=== PATIENT | male | born 1975 | race Caucasian/White ===

== ENCOUNTER 2017-03-04 17:50 | Emergency (ER) | payer OTHER ==
[~2017-03-04] VITALS: Ht 185.4 cm; Wt 96.8 kg
[~2017-03-04 17:50] MED LIST: CEPH-357 PO; NO HOME MEDS; NORCO10T PO
[2017-03-04 18:30] LABS: BASOPHILS % (AUTO) 0.4 % (0-1); EOSINOPHILS # (AUTO) 0.2 X10'3 (0-0.9); EOSINOPHILS % (AUTO) 2.9 % (0-6); HEMATOCRIT 44.6 % (42.0-52.0); HEMOGLOBIN 15.6 g/dl (14.0-17.9); LYMPHOCYTES # (AUTO) 1.7 X10'3 (1.1-4.8); LYMPHOCYTES % (AUTO) 26.6 % (21-51); MEAN CORPUSCULAR HEMOGLOBIN 28.3 PG (27.0-31.0); MEAN CORPUSCULAR HGB CONC 34.9 % (33.0-36.5); MEAN CORPUSCULAR VOLUME 81.3 FL (78-98); MEAN PLATELET VOLUME 7.5 FL (7.4-10.4); MONOCYTES # (AUTO) 0.6 X10'3 (0-0.9); NEUTROPHILS # (AUTO) 3.9 X10'3 (1.8-7.7); NEUTROPHILS % (AUTO) 61.1 % (42-75); PLATELET COUNT 154 X10'3 (140-440); RED BLOOD COUNT 5.49 X10'6 (4.70-6.10); RED CELL DISTRIBUTION WIDTH 13.4 % (11.5-14.5); WHITE BLOOD COUNT 6.3 X10'3 (4.5-11.0)
[2017-03-04 18:38] LABS: CLARITY,URINE CLEAR (Clear); COLOR,URINE YELLOW (Yellow); GLUCOSE, URINE >=1000 mg/dl (Neg); KETONES,URINE TRACE mg/dl (Neg); LEUKOCYTE ESTERASE ,URINE NEGATIVE (Neg); NITRITES, URINE NEGATIVE (Neg); OCCULT BLOOD,URINE NEGATIVE (Neg); PROTEIN,URINE NEGATIVE (Neg); UROBILINOGEN,URINE 0.2 E.U/dL (0.2-1.0)
[2017-03-04 18:39] LABS: PROTHROMBIN TIME 9.9 SECONDS (9.0-12.0)
[2017-03-04] MEDS ORDERED: normal saline 1000ML IV soln IVB ONE (18:40)
[2017-03-04] MEDS ORDERED: glycopyrrolate 0.2mg/ml inj IV ONE (18:40)
[2017-03-04] MEDS ORDERED: ketorolac trometh. 30mg/ml inj. IV ONE (18:40)
[2017-03-04] MEDS ORDERED: ondansetron/PF 4mg/2ml inj IV ONE (18:40)
[2017-03-04 18:46] LABS: UA COLLECTION TYPE CLN CATCH MIDSTREAM
[2017-03-04 18:47] LABS: ALANINE AMINOTRANSFERASE 35 U/L (12-78); ALBUMIN 3.4 G/DL (3.4-5.0); ALBUMIN/GLOBULIN RATIO 0.9 (1.1-1.5); ALKALINE PHOSPHATASE 107 IU/L (46-116); ANION GAP 8 (8-16); ASPARTATE AMINO TRANSFERASE 12 U/L (10-37); BILIRUBIN,TOTAL 0.3 MG/DL (0.1-1.0); BLOOD UREA NITROGEN 17 MG/DL (7-18); CALCIUM 8.2 MG/DL (8.5-10.1); CHLORIDE 101 MMOL/L (99-107); GLUCOSE 343 MG/DL (70-104); POTASSIUM 4.1 MMOL/L (3.5-5.1); SODIUM 137 MMOL/L (135-145); TOTAL CARBON DIOXIDE 27.9 MMOL/L (24-32); eGFR 82 ML/MIN
[2017-03-04 18:55] LABS: BACTERIA,URINE FEW /HPF (Neg); RBC,URINE 0-2 /HPF (0-2); SQUAMOUS EPITHELIAL CELL,UR FEW /LPF (FEW); WBC,URINE 0-4 /HPF (0-4)
[2017-03-04] MEDS ORDERED: ONDA4TAB12 PO (20:28)
[2017-03-04] MEDS ORDERED: DICY10CA88 PO (20:28)
[2017-03-04] MEDS ORDERED: METF500T PO (20:28)
[2017-03-04 20:47] VITALS: BP 128/68
== END 2017-03-04 20:49 | disposition home or self-care (01) ==
LOC: ER 17:51
DX: R73.9 Hyperglycemia, unspecified (principal); F17.200 Nicotine dependence, unspecified, uncomplicated
CPT/HCPCS: 36415; 80053; 81001; 85025; 85610; 96361; 96374; 96375; 99284; J1885; J2405; J3490; J7030

== ENCOUNTER 2017-07-21 05:48 | Emergency (ER) | payer OTHER ==
[~2017-07-21] VITALS: Ht 188 cm; Wt 108.9 kg
[~2017-07-21 05:48] MED LIST changes: +ONDA4TAB12 PO
[2017-07-21] MEDS ORDERED: METF500T PO (06:38)
[2017-07-21] MEDS ORDERED: CefTRIAXone 2gm/D5W 50ml 50 ML IV ONE (07:35)
[2017-07-21] MEDS ORDERED: insulin regular, human 10 units/0.1 ml syringe SQ ONE ×2 (07:35→10:50)
[2017-07-21] MEDS ORDERED: normal saline 1000ML IV soln IVB ONE ×2 (07:35→09:15)
[2017-07-21 08:09] LABS: BASOPHILS % (AUTO) 0.2 % (0-1); EOSINOPHILS # (AUTO) 0.1 X10'3 (0-0.9); EOSINOPHILS % (AUTO) 0.5 % (0-6); HEMATOCRIT 43.1 % (42.0-52.0); LYMPHOCYTES # (AUTO) 1.5 X10'3 (1.1-4.8); LYMPHOCYTES % (AUTO) 10.7 % (21-51); MEAN CORPUSCULAR HEMOGLOBIN 28.3 PG (27.0-31.0); MEAN CORPUSCULAR HGB CONC 34.7 % (33.0-36.5); MEAN CORPUSCULAR VOLUME 81.4 FL (78-98); MEAN PLATELET VOLUME 7.7 FL (7.4-10.4); MONOCYTES # (AUTO) 0.7 X10'3 (0-0.9); MONOCYTES % (AUTO) 5.3 % (2-12); NEUTROPHILS # (AUTO) 11.3 X10'3 (1.8-7.7); NEUTROPHILS % (AUTO) 83.3 % (42-75); PLATELET COUNT 168 X10'3 (140-440); RED CELL DISTRIBUTION WIDTH 13.4 % (11.5-14.5); WHITE BLOOD COUNT 13.6 X10'3 (4.5-11.0)
[2017-07-21 08:14] LABS: PARTIAL THROMBOPLASTIN TIME 27 SECONDS (22-32)
[2017-07-21 08:27] LABS: ALANINE AMINOTRANSFERASE 28 U/L (12-78); ALBUMIN 3.4 G/DL (3.4-5.0); ALBUMIN/GLOBULIN RATIO 0.9 (1.1-1.5); ALKALINE PHOSPHATASE 120 IU/L (46-116); ANION GAP 10 (8-16); ASPARTATE AMINO TRANSFERASE 14 U/L (10-37); BILIRUBIN,TOTAL 0.7 MG/DL (0.1-1.0); BLOOD UREA NITROGEN 16 MG/DL (7-18); CALCIUM 8.1 MG/DL (8.5-10.1); CHLORIDE 98 MMOL/L (99-107); POTASSIUM 3.7 MMOL/L (3.5-5.1); SODIUM 134 MMOL/L (135-145); TOTAL CARBON DIOXIDE 25.9 MMOL/L (24-32); TOTAL PROTEIN 7.1 G/DL (6.4-8.2); eGFR 82 ML/MIN
[2017-07-21 08:29] LABS: GLUCOSE 490 MG/DL (70-104)
[2017-07-21] MEDS ORDERED: morphine 4 MG/ML inj SYRINge IV ONE (09:15)
[2017-07-21] MEDS ORDERED: ketorolac tromethamine 15mg/ml inj. IV ONE (09:15)
[2017-07-21] MEDS ORDERED: morphine 4 MG/ML inj SYRINge IV PRN (09:15)
[2017-07-21] MEDS ORDERED: amox tr/potassium clavulanate 875/125mg TAB PO ONE (10:20)
[2017-07-21] MEDS ORDERED: vancomycin/NS 1 GM ADD-VANTAGE 250 ML IV ONE (10:20)
[2017-07-21] MEDS ORDERED: AMOX-580 PO (11:45)
[2017-07-21 11:51] VITALS: BP 165/85
== END 2017-07-21 12:58 | disposition left against medical advice (07) ==
LOC: ER 05:48
DX: S62.502A Fracture of unspecified phalanx of left thumb, initial encounter for closed fracture (principal); E11.9 Type 2 diabetes mellitus without complications; F17.200 Nicotine dependence, unspecified, uncomplicated; M65.9 Synovitis and tenosynovitis, unspecified; Z79.84 Long term (current) use of oral hypoglycemic drugs; Z79.2 Long term (current) use of antibiotics; W18.30XA Fall on same level, unspecified, initial encounter; Y93.89 Activity, other specified; Y92.89 Other specified places as the place of occurrence of the external cause; Y99.8 Other external cause status
CPT/HCPCS: 29125; 36415; 73130; 80053; 82948; 83605; 85025; 85610; 85730; 87040; 96361; 96365; 96366; 96367; 96372; 96375; 99285; J0696; J1815; J1885; J2270; J3370; J7030

== ENCOUNTER 2018-01-06 08:26 | Emergency (ER) | payer SELFPAY ==
[~2018-01-06] VITALS: Ht 188 cm; Wt 106.5 kg
[~2018-01-06 08:26] MED LIST changes: -CEPH-357 PO; +METF500T PO; -NO HOME MEDS; -NORCO10T PO; -ONDA4TAB12 PO
[2018-01-06] MEDS ORDERED: normal saline 1000ML IV soln IVB ONE (08:55)
[2018-01-06 09:19] LABS: BASOPHILS % (AUTO) 0.2 % (0-1); EOSINOPHILS # (AUTO) 0.3 X10'3 (0-0.9); EOSINOPHILS % (AUTO) 3.5 % (0-6); HEMATOCRIT 51.8 % (42.0-52.0); HEMOGLOBIN 17.4 g/dl (14.0-17.9); LYMPHOCYTES # (AUTO) 2.4 X10'3 (1.1-4.8); LYMPHOCYTES % (AUTO) 30.7 % (21-51); MEAN CORPUSCULAR HEMOGLOBIN 27.4 PG (27.0-31.0); MEAN CORPUSCULAR HGB CONC 33.6 % (33.0-36.5); MEAN CORPUSCULAR VOLUME 81.8 FL (78-98); MEAN PLATELET VOLUME 7.8 FL (7.4-10.4); MONOCYTES # (AUTO) 0.4 X10'3 (0-0.9); MONOCYTES % (AUTO) 5.2 % (2-12); NEUTROPHILS # (AUTO) 4.7 X10'3 (1.8-7.7); NEUTROPHILS % (AUTO) 60.4 % (42-75); PLATELET COUNT 211 X10'3 (140-440); RED BLOOD COUNT 6.33 X10'6 (4.70-6.10); RED CELL DISTRIBUTION WIDTH 13.4 % (11.5-14.5); WHITE BLOOD COUNT 7.8 X10'3 (4.5-11.0)
[2018-01-06 09:37] LABS: PARTIAL THROMBOPLASTIN TIME 24 SECONDS (22-32); PROTHROMBIN TIME 10.2 SECONDS (9.0-12.0)
[2018-01-06 09:39] LABS: ALANINE AMINOTRANSFERASE 30 U/L (12-78); ALKALINE PHOSPHATASE 103 IU/L (46-116); ANION GAP 4 (8-16); ASPARTATE AMINO TRANSFERASE 12 U/L (10-37); BILIRUBIN,TOTAL 0.7 MG/DL (0.1-1.0); BLOOD UREA NITROGEN 22 MG/DL (7-18); CALCIUM 9.4 MG/DL (8.5-10.1); CHLORIDE 96 MMOL/L (99-107); GLUCOSE 419 MG/DL (70-104); POTASSIUM 4.5 MMOL/L (3.5-5.1); SODIUM 131 MMOL/L (135-145); TOTAL CARBON DIOXIDE 31.2 MMOL/L (24-32); TOTAL PROTEIN 7.9 G/DL (6.4-8.2); eGFR 82 ML/MIN
[2018-01-06] MEDS ORDERED: insulin regular, human 10 units/0.1 ml syringe IV ONE (10:00)
[2018-01-06] MEDS ORDERED: METF500T PO (10:02)
[2018-01-06 10:39] VITALS: BP 126/83
== END 2018-01-06 10:39 | disposition home or self-care (01) ==
LOC: ER 08:27
DX: S06.9X9A Unspecified intracranial injury with loss of consciousness of unspecified duration, initial encounter (principal); S13.4XXA Sprain of ligaments of cervical spine, initial encounter; R55 Syncope and collapse; R42 Dizziness and giddiness; E11.9 Type 2 diabetes mellitus without complications; F17.290 Nicotine dependence, other tobacco product, uncomplicated; W22.8XXA Striking against or struck by other objects, initial encounter; Y93.89 Activity, other specified; Y92.89 Other specified places as the place of occurrence of the external cause; Y99.8 Other external cause status
CPT/HCPCS: 36415; 70450; 71045; 72125; 80053; 82948; 84484; 85025; 85610; 85730; 93005; 96361; 96374; 99284; 99406; J1815; J7030

== ENCOUNTER 2020-09-11 06:05 | Emergency (ER) | payer SELFPAY ==
[~2020-09-11] VITALS: Ht 188 cm; Wt 97.7 kg
--- NOTE | 2020-09-11 06:53 | NUR ---
Pt requesting to hold off on PIV until seen by .
[2020-09-11 07:49] VITALS: BP 146/106
== END 2020-09-11 07:51 | disposition home or self-care (01) ==
LOC: ER 06:05
DX: R07.89 Other chest pain (principal); R06.02 Shortness of breath; E11.9 Type 2 diabetes mellitus without complications; F17.200 Nicotine dependence, unspecified, uncomplicated; Z72.89 Other problems related to lifestyle; Z98.890 Other specified postprocedural states; Z79.899 Other long term (current) drug therapy
CPT/HCPCS: 71045; 93005; 99284; 99285

== ENCOUNTER 2020-10-22 05:54 | Emergency (ER) | payer SELFPAY ==
[~2020-10-22] VITALS: Ht 188 cm; Wt 90.9 kg
[2020-10-22 06:21] VITALS: BP 104/79
[2020-10-22] MEDS ORDERED: ibuprofen 200mg tablet PO ONE (07:00)
[2020-10-22] MEDS ORDERED: IBUP-1985 PO (07:03)
== END 2020-10-22 07:15 | disposition home or self-care (01) ==
LOC: ER 05:54
DX: M25.561 Pain in right knee (principal); E11.9 Type 2 diabetes mellitus without complications; F17.200 Nicotine dependence, unspecified, uncomplicated; Z98.890 Other specified postprocedural states; Z79.899 Other long term (current) drug therapy
CPT/HCPCS: 73564; 99283

== ENCOUNTER 2022-01-07 16:38 | Emergency (ER) | payer MEDICAID ==
[~2022-01-07] VITALS: Ht 188 cm; Wt 90.0 kg
[~2022-01-07 16:38] MED LIST changes: +IBUP-1985 PO
[2022-01-07 17:20] VITALS: BP 123/75
[2022-01-07 18:08] LABS: BASOPHILS % (AUTO) 0.3 % (0-1); EOSINOPHILS # (AUTO) 0.2 X10'3 (0-0.9); EOSINOPHILS % (AUTO) 1.9 % (0-6); HEMATOCRIT 45.6 % (42.0-52.0); HEMOGLOBIN 15.7 g/dl (14.0-17.9); LYMPHOCYTES # (AUTO) 4.4 X10'3 (1.1-4.8); LYMPHOCYTES % (AUTO) 45.9 % (21-51); MEAN CORPUSCULAR HEMOGLOBIN 28.1 PG (27.0-31.0); MEAN CORPUSCULAR HGB CONC 34.3 g/dL (33.0-36.5); MEAN CORPUSCULAR VOLUME 81.9 FL (78-98); MEAN PLATELET VOLUME 7.2 FL (7.4-10.4); MONOCYTES # (AUTO) 0.5 X10'3 (0-0.9); MONOCYTES % (AUTO) 5.3 % (2-12); NEUTROPHILS # (AUTO) 4.5 X10'3 (1.8-7.7); NEUTROPHILS % (AUTO) 46.6 % (42-75); PLATELET COUNT 256 X10'3 (140-440); RED BLOOD COUNT 5.57 X10'6 (4.70-6.10); RED CELL DISTRIBUTION WIDTH 13.1 % (11.5-14.5); WHITE BLOOD COUNT 9.6 X10'3 (4.5-11.0)
[2022-01-07 18:23] LABS: ALANINE AMINOTRANSFERASE 15 U/L (12-78); ALBUMIN 3.5 G/DL (3.4-5.0); ALBUMIN/GLOBULIN RATIO 0.9 (1.1-1.5); ALKALINE PHOSPHATASE 88 IU/L (46-116); ANION GAP 5 (8-16); ASPARTATE AMINO TRANSFERASE 9 U/L (10-37); BILIRUBIN,TOTAL 0.5 MG/DL (0.1-1.0); BLOOD UREA NITROGEN 20 MG/DL (7-18); CHLORIDE 98 MMOL/L (99-107); CREATININE 0.91 MG/DL (0.60-1.10); GLUCOSE 303 MG/DL (70-104); POTASSIUM 4.3 MMOL/L (3.5-5.1); SODIUM 132 MMOL/L (135-145); TOTAL CARBON DIOXIDE 28.7 MMOL/L (24-32); TOTAL PROTEIN 7.3 G/DL (6.4-8.2); eGFR 90 ML/MIN
[2022-01-07] MEDS ORDERED: ringers solution, lacted 1,000 ML IV ONE (19:00)
[2022-01-07] MEDS ORDERED: METF-436 PO (19:05)
== END 2022-01-07 19:42 | disposition home or self-care (01) ==
LOC: ER 16:39
DX: E11.65 Type 2 diabetes mellitus with hyperglycemia (principal); R42 Dizziness and giddiness; Z91.030 Bee allergy status
CPT/HCPCS: 36415; 71045; 80053; 82948; 85025; 93005; 99285

== ENCOUNTER 2022-01-17 21:40 | Emergency (ER) | payer MEDICAID ==
[~2022-01-17] VITALS: Ht 188 cm; Wt 88.6 kg
[~2022-01-17 21:40] MED LIST changes: +METF-436 PO
[2022-01-17 22:13] VITALS: BP 107/70
== END 2022-01-18 02:27 | disposition left against medical advice (07) ==
LOC: ER 21:41
DX: M54.9 Dorsalgia, unspecified (principal); Z53.21 Procedure and treatment not carried out due to patient leaving prior to being seen by health care provider
CPT/HCPCS: 82948

== ENCOUNTER 2023-12-18 17:15 | Emergency (ER) | payer MEDICAID ==
[~2023-12-18] VITALS: Ht 188 cm; Wt 102.4 kg
[2023-12-18 19:44] VITALS: BP 137/89; PULSE 97; RESP 16; TEMP 98; O2SAT 99
== END 2023-12-18 19:46 | disposition home or self-care (01) ==
LOC: ER 17:16
DX: S00.01XA Abrasion of scalp, initial encounter (principal); E11.9 Type 2 diabetes mellitus without complications; Z91.030 Bee allergy status; Z91.013 Allergy to seafood; Z79.899 Other long term (current) drug therapy; W22.8XXA Striking against or struck by other objects, initial encounter; Y93.89 Activity, other specified; Y92.89 Other specified places as the place of occurrence of the external cause; Y99.8 Other external cause status
CPT/HCPCS: 99282